=== PATIENT | male | born 1955 | race Caucasian/White ===

== ENCOUNTER → 2018-04-09 | Outpatient (CLI) | payer BC ==
--- NOTE | 2018-04-09 13:27 | PCVCIMAG ---
EXAM: BILATERAL CAROTID DUPLEX INDICATION: Carotid Occlusive Disease. FINDINGS: Doppler Measurements (centimeters per second): RIGHT: Peak CCA-103, Peak ECA-103, Diastolic ICA-10, Peak ICA-79, ICA/CCA Ratio-0.8. LEFT: Peak CCA-123, Peak ECA-88, Diastolic ICA-22, Peak ICA-75, ICA/CCA Ratio-0.6. RIGHT CAROTID: The carotid bulb has mild plaque. The proximal internal carotid artery shows <40% stenosis. The common carotid artery shows no significant stenosis. The external carotid artery shows no significant stenosis. LEFT CAROTID: The carotid bulb has mild plaque. The proximal internal carotid artery shows <40% stenosis. The common carotid artery shows no significant stenosis. The external carotid artery shows no significant stenosis. Antegrade flow in both vertebral arteries. IMPRESSION: <40% stenosis of the right internal carotid artery with mild plaque. <40% stenosis of the left internal carotid artery with mild plaque. Little overall change since June 2015. LOC:[id number]
== END | disposition home or self-care (01) ==
LOC: PCVCIMAG 13:25
PROVIDERS: ATTEND Internal Medicine Cardiovascular Disease
DX: I65.23 Occlusion and stenosis of bilateral carotid arteries (principal); I10 Essential (primary) hypertension; E78.00 Pure hypercholesterolemia, unspecified; E78.5 Hyperlipidemia, unspecified; E11.9 Type 2 diabetes mellitus without complications
CPT/HCPCS: 93880

== ENCOUNTER → 2018-05-06 | Outpatient (CLI) | payer BC ==
--- NOTE | 2018-05-10 11:23 | PCVCIMAG ---
APPROVED REPORT Imaging Protocol: Rest Tc-99m/Stress Tc-99m 1 day Study performed: 05/06/2018 09:01:04 Indication: Dyspnea Patient Location: Out-Patient Stress Nurse: Alisa Crespo RN, Jenny Jesus RN ID Tech:Diane Melton [facility] Ht: 5 ft 8 in Wt: 2009 lbs BSA: 5.45 m2 HR: 67 bpm BP: 177/95 mmHg BMI: 305.4 Rhythm: Sinus Rhythm, T wave abnormalities Medical History Medical History: HTN, Hyperlipidemia, CVD, Diabetes, Current Smoker Medications: ASA, ACTZ, Pravachol, Accupril Allergies: No known drug allergies Cardiac Risk Factors: Age, FHX of CAD Pretest Chest Pain Characteristics: No chest pain Exercise History: Physically active Resting Data Rest SPECT myocardial perfusion imaging was performed in supine position 45 minutes following the intravenous injection of 10.7 mCi of Tc-99m Sestamibi. Time of rest injection: 0845 Date: 05/06/2018 Administration Route: IV Administration Site: Right Hand Exercise Stress At peak stress, the patient was injected intravenously with 33.2mCi of Tc-99m Sestamibi. Time of stress injection: 1015 Date: 05/06/2018 Administration Route: IV Administration Site: Right Hand Patient continued to exercise for 1.00 minute(s). Gated Stress SPECT was performed 30 minutes after stress injection. The images were gated to evaluate regional wall motion and calculate left ventricular ejection fraction. Stress Test Details Stress Test: Exercise stress testing was performed using a Michael protocol. HRMax Heart Rate (APMHR): 158 bpm Resting HR: 67 bpmTarget HR (85% APMHR): 134 bpm Max HR Achieved: 142 bpm % of APMHR: 89 Recovery HR: 86 bpm BP Resting BP: 177/95 mmHg Max BP: 226/102 mmHg Recovery BP: 175/71 mmHg ECG Resting ECG: Sinus Rhythm, T wave abnormalities Stress ECG: Sinus Tachycardia, T wave abnormalities ST Change: None Maximum ST Deviation: 0 mm Arrhythmia: VPC's Recovery ECG: Sinus Rhythm, T wave abnormalities Recovery ST Change: None Recovery ST Deviation: 0 mm Recovery Arrhythmia: VPC Clinical Reason for Termination: Dyspnea Stress Symptoms: Dyspnea Exercise duration: 13 min 01 sec Exercise capacity: 13.40 METs Angina Score: None Symptoms resolved during recovery. Stress ECG Conclusion ECG: Non-ischemic Clinical: Non-ischemic Mehta Treadmill Score is 13.0 which is Low risk. Study Quality Study: Good Study Data Post stress, the left ventricular ejection was 65%.. SSS: 1 SRS: 0 SDS: 1 TID = 1.00. Perfusion No evidence of stress induced ischemia or prior myocardial infarction. Wall Motion Normal left ventricular size and function with no regional wall motion abnormalities. Nuclear Conclusion No evidence of stress induced ischemia or prior myocardial infarction. Normal left ventricular size and function with no regional wall motion abnormalities. Post stress, the left ventricular ejection was 65%. No change since prior study dated June 2015. Interpreted by: Larry Snell MD Electronically Approved: 05/06/2018 13:14:05 <Conclusion> ECG: Non-ischemic Clinical: Non-ischemic
== END | disposition home or self-care (01) ==
LOC: PCVCIMAG 09:03
PROVIDERS: ATTEND Internal Medicine Cardiovascular Disease
DX: R06.09 Other forms of dyspnea (principal); R07.9 Chest pain, unspecified; R94.31 Abnormal electrocardiogram [ECG] [EKG]; I10 Essential (primary) hypertension; E78.5 Hyperlipidemia, unspecified; E11.9 Type 2 diabetes mellitus without complications; I25.10 Atherosclerotic heart disease of native coronary artery without angina pectoris; F17.200 Nicotine dependence, unspecified, uncomplicated
CPT/HCPCS: 78452; 93017; A9500